=== PATIENT | male | born 1970 | race Caucasian/White ===

== ENCOUNTER 2016-07-13 05:41 | Inpatient (IN) | payer MEDICAID, OTHER ==
[~2016-07-13] VITALS: Ht 165.1 cm; Wt 85.2 kg
[~2016-07-13 05:41] MED LIST: TRAM50TA4 PO; WARF5 PO
[2016-07-13 06:58] LABS: BASOPHILS % (AUTO) 0.3 % (0.0-2.0); EOSINOPHILS % (AUTO) 5.2 % (1.0-6.0); HEMOGLOBIN 15.9 g/dL (13.5-17.5); LYMPHOCYTES # (AUTO) 1.2 K/uL (1.0-4.8); LYMPHOCYTES % (AUTO) 20.3 % (22.0-44.0); MEAN CORPUSCULAR HEMOGLOBIN 30.1 pg (26.0-34.0); MEAN CORPUSCULAR VOLUME 91 fL (80-100); MONOCYTES # (AUTO) 0.4 K/uL (0.1-1.0); MONOCYTES % (AUTO) 7.9 % (2.0-9.0); NEUTROPHILS # (AUTO) 3.8 K/uL (1.8-7.7); NEUTROPHILS % (AUTO) 66.3 % (40.0-70.0); PLATELET COUNT (AUTO) 152 K/uL (150-450); RED BLOOD CELL COUNT(AUTO) 5.27 MIL/uL (4.50-5.90); RED CELL DISTRIBUTION WIDTH 14.8 % (11.5-14.5); WHITE BLOOD COUNT (AUTO) 5.7 K/uL (4.5-11.0)
[2016-07-13 07:05] LABS: CALCIUM, TOTAL 9.2 mg/dL (8.8-10.5); CREATININE 2.2 mg/dL (0.60-1.30); POTASSIUM 4.4 mmol/L (3.5-5.1)
[2016-07-13 07:06] LABS: PROTHROMBIN TIME 10.3 SEC (9.4-11.6)
[2016-07-13 07:11] LABS: ALBUMIN 3.9 g/dL (3.4-5.0); BILIRUBIN,TOTAL 0.7 mg/dL (0.1-1.0)
[2016-07-13] MEDS ORDERED: ENOXAPARIN SODIUM 100 MG/ML PF SYRINGE SQ SCH (09:30)
[2016-07-13] MEDS ORDERED: WARFARIN SODIUM 5 MG TABLET PO ONE (09:30)
[2016-07-13] MEDS ORDERED: ACETAMINOPHEN 325 MG TABLET PO PRN (10:00)
[2016-07-13] MEDS ORDERED: ONDANSETRON HCL 4 MG/2 ML VIAL IVP PRN ×2 (10:00→11:45)
[2016-07-13] MEDS ORDERED: 0.9% SODIUM CHLORIDE 10 ML SYRINGE IVP PRN (10:00)
[2016-07-13] MEDS ORDERED: HYDROCODONE/ACETAMINOPHEN 5-325 MG TABLET PO ONE (10:00)
[2016-07-13 11:15] VITALS: BP 133/71
[2016-07-13] MEDS ORDERED: MAGNESIUM HYDROXIDE SUSPENSION 30 ML UDCUP PO PRN (11:45)
[2016-07-13] MEDS ORDERED: ZOLPIDEM TARTRATE 5 MG TABLET PO PRN (11:45)
[2016-07-13] MEDS ORDERED: HYDROCODONE/ACETAMINOPHEN 5-325 MG TABLET PO PRN (11:45)
[2016-07-13] MEDS ORDERED: BISACODYL 10 MG RECTAL RECTAL SUPPOSITORY PR PRN (11:45)
[2016-07-13] MEDS: OxyCODONE HCL/ACETAMINOPHEN 5-325 MG TABLET PO PRN (15:31)
[2016-07-13 16:44] VITALS: BP 128/72
[2016-07-13] MEDS ORDERED: SODIUM CHLORIDE 0.9% 1,000 ML IV ONE (18:17)
[2016-07-13] MEDS: SODIUM CHLORIDE 0.9% 1,000 ML IV SCH (18:37)
[2016-07-13 18:41] LABS: GLUCOSE,POINT OF CARE 102 MG/DL (70-110)
[2016-07-13 19:44] LABS: THYROID STIMULATING HORMONE 3.53 uIU/mL (0.36-3.74)
[2016-07-13 20:24] VITALS: BP 115/69
[2016-07-13] MEDS: ENOXAPARIN SODIUM 100 MG/ML PF SYRINGE SQ SCH (20:30)
[2016-07-14] VITALS (7 sets, daily range): BP systolic 115–137; BP diastolic 58–89
[2016-07-14] MEDS: SODIUM CHLORIDE 0.9% 1,000 ML IV SCH ×3 (00:27→23:19)
[2016-07-14 06:40] LABS: INR 1.3 (0.9-1.1); PROTHROMBIN TIME 14.1 SEC (9.4-11.6)
[2016-07-14 06:42] LABS: BASOPHILS % (AUTO) 0.3 % (0.0-2.0); HEMATOCRIT 43.7 % (41-53); HEMOGLOBIN 14.3 g/dL (13.5-17.5); LYMPHOCYTES # (AUTO) 1.4 K/uL (1.0-4.8); LYMPHOCYTES % (AUTO) 31.7 % (22.0-44.0); MEAN CORPUSCULAR HGB CONC 32.8 G/dL (31.0-37.0); MEAN CORPUSCULAR VOLUME 91 fL (80-100); MONOCYTES # (AUTO) 0.4 K/uL (0.1-1.0); NEUTROPHILS # (AUTO) 2.4 K/uL (1.8-7.7); PLATELET COUNT (AUTO) 140 K/uL (150-450); RED BLOOD CELL COUNT(AUTO) 4.78 MIL/uL (4.50-5.90); RED CELL DISTRIBUTION WIDTH 14.8 % (11.5-14.5); WHITE BLOOD COUNT (AUTO) 4.4 K/uL (4.5-11.0)
[2016-07-14 07:04] LABS: BILIRUBIN,TOTAL 0.4 mg/dL (0.1-1.0); CALCIUM, TOTAL 8.3 mg/dL (8.8-10.5); CREATININE 2.07 mg/dL (0.60-1.30); POTASSIUM 3.9 mmol/L (3.5-5.1); TOTAL PROTEIN, SERUM 6.3 g/dL (6.4-8.2)
[2016-07-14] MEDS: PANTOPRAZOLE SODIUM 40 MG DR TABLET PO SCH (07:58)
[2016-07-14] MEDS: ENOXAPARIN SODIUM 100 MG/ML PF SYRINGE SQ SCH ×2 (07:58→20:54)
[2016-07-14] MEDS ORDERED: WARFARIN SODIUM 5 MG TABLET PO ONE (17:00)
[2016-07-15 04:00] VITALS: BP 130/67
[2016-07-15 07:56] VITALS: BP 128/79
[2016-07-15] MEDS: PANTOPRAZOLE SODIUM 40 MG DR TABLET PO SCH (08:09)
[2016-07-15] MEDS: ENOXAPARIN SODIUM 100 MG/ML PF SYRINGE SQ SCH ×2 (08:09→20:00)
[2016-07-15] MEDS: SODIUM CHLORIDE 0.9% 1,000 ML IV SCH ×2 (10:45→20:18)
[2016-07-15 11:17] VITALS: BP 129/70
[2016-07-15 15:55] VITALS: BP 128/69
[2016-07-15] MEDS: WARFARIN SODIUM 5 MG TABLET PO SCH (18:09)
[2016-07-15 19:39] VITALS: BP 134/79
[2016-07-15] MEDS: OxyCODONE HCL/ACETAMINOPHEN 5-325 MG TABLET PO PRN (20:02)
[2016-07-15 23:50] VITALS: BP 125/66
[2016-07-16 04:41] VITALS: BP 114/61
[2016-07-16] MEDS: SODIUM CHLORIDE 0.9% 1,000 ML IV SCH ×2 (07:01→16:45)
[2016-07-16 08:10] VITALS: BP 123/68
[2016-07-16] MEDS: PANTOPRAZOLE SODIUM 40 MG DR TABLET PO SCH (08:17)
[2016-07-16] MEDS: ENOXAPARIN SODIUM 100 MG/ML PF SYRINGE SQ SCH (08:17)
[2016-07-16 11:44] VITALS: BP 117/55
[2016-07-16 15:17] LABS: INR 3.2 (0.9-1.1); PROTHROMBIN TIME 34.1 SEC (9.4-11.6)
[2016-07-16 15:38] VITALS: BP 135/68
[2016-07-16] MEDS: WARFARIN SODIUM 5 MG TABLET PO SCH (17:00)
[2016-07-16] MEDS ORDERED: WARF1 PO (18:42)
== END 2016-07-16 19:00 | disposition home or self-care (01) | DRG 300 ==
LOC: EMS 05:42 → 6N 09:40
PROVIDERS: ADMIT Hospitalist; ATTEND Hospitalist
DX: I82.432 Acute embolism and thrombosis of left popliteal vein (principal); N17.9 Acute kidney failure, unspecified; I82.412 Acute embolism and thrombosis of left femoral vein; N18.9 Chronic kidney disease, unspecified; R80.9 Proteinuria, unspecified; I12.9 Hypertensive chronic kidney disease with stage 1 through stage 4 chronic kidney disease, or unspecified chronic kidney disease; Z86.718 Personal history of other venous thrombosis and embolism
CPT/HCPCS: 82962; 84439; 84443; 93971; 96372; 99285; J1650; J7030

== ENCOUNTER 2016-09-07 08:52 | Emergency (ER) | payer MEDICAID, OTHER ==
[~2016-09-07] VITALS: Ht 165.1 cm; Wt 86.4 kg
[~2016-09-07 08:52] MED LIST changes: -TRAM50TA4 PO; +WARF1 PO; -WARF5 PO
[2016-09-07 10:05] LABS: BASOPHILS % (AUTO) 0.3 % (0.0-2.0); EOSINOPHILS % (AUTO) 1.6 % (1.0-6.0); HEMATOCRIT 48.1 % (41-53); HEMOGLOBIN 15.4 g/dL (13.5-17.5); LYMPHOCYTES % (AUTO) 16.6 % (22.0-44.0); MEAN CORPUSCULAR HEMOGLOBIN 29.5 pg (26.0-34.0); MEAN CORPUSCULAR HGB CONC 31.9 G/dL (31.0-37.0); MEAN CORPUSCULAR VOLUME 92 fL (80-100); MONOCYTES # (AUTO) 0.5 K/uL (0.1-1.0); MONOCYTES % (AUTO) 7.5 % (2.0-9.0); NEUTROPHILS # (AUTO) 4.5 K/uL (1.8-7.7); PLATELET COUNT (AUTO) 167 K/uL (150-450); RED BLOOD CELL COUNT(AUTO) 5.21 MIL/uL (4.50-5.90); RED CELL DISTRIBUTION WIDTH 14.1 % (11.5-14.5)
[2016-09-07 10:14] LABS: CALCIUM, TOTAL 9.3 mg/dL (8.8-10.5); CREATININE 1.95 mg/dL (0.60-1.30); POTASSIUM 3.4 mmol/L (3.5-5.1)
[2016-09-07 10:17] LABS: PROTHROMBIN TIME 10.5 SEC (9.4-11.6)
[2016-09-07 10:20] LABS: ALBUMIN 3.8 g/dL (3.4-5.0); BILIRUBIN,TOTAL 0.5 mg/dL (0.1-1.0); TOTAL PROTEIN, SERUM 7.3 g/dL (6.4-8.2)
[2016-09-07] MEDS ORDERED: IOVERSOL 350 MG/ML 150 ML VIAL ONE (10:55)
[2016-09-07] MEDS ORDERED: SODIUM CHLORIDE 0.9% 100 ML ONE (10:56)
[2016-09-07 12:33] VITALS: BP 145/89
== END 2016-09-07 12:50 | disposition home or self-care (01) ==
LOC: EMS 08:53
DX: J40 Bronchitis, not specified as acute or chronic (principal); N28.9 Disorder of kidney and ureter, unspecified; Z86.718 Personal history of other venous thrombosis and embolism; Z79.01 Long term (current) use of anticoagulants
CPT/HCPCS: 36415; 71275; 80053; 85025; 85610; 85730; 99285; J7050; Q9967

== ENCOUNTER 2018-11-12 16:19 | Emergency (ER) | payer SELFPAY ==
[~2018-11-12] VITALS: Ht 172.7 cm; Wt 86.4 kg
[2018-11-12 17:16] LABS: INR 2.4 (0.9-1.1); PROTHROMBIN TIME 24.6 SEC (9.4-11.6)
[2018-11-12 17:40] VITALS: BP 136/97
== END 2018-11-12 17:42 | disposition home or self-care (01) ==
LOC: EMS 16:20
DX: M79.605 Pain in left leg (principal); M79.652 Pain in left thigh; M79.89 Other specified soft tissue disorders; I10 Essential (primary) hypertension; Z86.718 Personal history of other venous thrombosis and embolism; Z79.899 Other long term (current) drug therapy; Z79.01 Long term (current) use of anticoagulants

== ENCOUNTER 2019-09-07 06:08 | Emergency (ER) | payer OTHER ==
[~2019-09-07] VITALS: Ht 162.6 cm; Wt 90.9 kg
[~2019-09-07 06:08] MED LIST changes: -WARF1 PO; +WARF1TAB9 PO
[2019-09-07 07:33] VITALS: BP 131/84
== END 2019-09-07 07:35 | disposition home or self-care (01) ==
LOC: EMS 06:08
DX: S93.402A Sprain of unspecified ligament of left ankle, initial encounter (principal); W01.0XXA Fall on same level from slipping, tripping and stumbling without subsequent striking against object, initial encounter; Y93.89 Activity, other specified; Y92.89 Other specified places as the place of occurrence of the external cause; Y99.8 Other external cause status

== ENCOUNTER 2020-07-24 10:13 | Emergency (ER) | payer OTHER ==
[~2020-07-24] VITALS: Ht 170.2 cm; Wt 110.0 kg
[2020-07-24] MEDS ORDERED: SODIUM CHLORIDE 0.9% 1,000 ML IV ONE (14:00)
[2020-07-24] MEDS ORDERED: MORPHINE SULFATE 4 MG/ML SYRINGE IVP ONE (14:00)
[2020-07-24] MEDS ORDERED: ONDANSETRON HCL 4 MG/2 ML VIAL IVP ONE (14:00)
[2020-07-24 14:47] LABS: BASOPHILS % (AUTO) 0.3 % (0.0-2.0); EOSINOPHILS % (AUTO) 5.2 % (1.0-6.0); HEMATOCRIT 42.8 % (41-53); HEMOGLOBIN 14.6 g/dL (13.5-17.5); LYMPHOCYTES # (AUTO) 1.1 K/uL (1.0-4.8); LYMPHOCYTES % (AUTO) 20.1 % (22.0-44.0); MEAN CORPUSCULAR HEMOGLOBIN 31.5 pg (26.0-34.0); MEAN CORPUSCULAR VOLUME 93 fL (80-100); MONOCYTES # (AUTO) 0.5 K/uL (0.1-1.0); MONOCYTES % (AUTO) 9.6 % (2.0-9.0); NEUTROPHILS # (AUTO) 3.7 K/uL (1.8-7.7); NEUTROPHILS % (AUTO) 64.8 % (40.0-70.0); PLATELET COUNT (AUTO) 150 K/uL (150-450); RED BLOOD CELL COUNT(AUTO) 4.63 MIL/uL (4.50-5.90); RED CELL DISTRIBUTION WIDTH 13.3 % (11.5-14.5)
[2020-07-24 15:02] LABS: CALCIUM, TOTAL 9.8 mg/dL (8.8-10.5); CREATININE 1.99 mg/dL (0.60-1.30); POTASSIUM 3.8 mmol/L (3.5-5.1); PROTHROMBIN TIME 10.2 SEC (9.4-11.6)
[2020-07-24 15:07] LABS: ALBUMIN 4.3 g/dL (3.4-5.0); BILIRUBIN,TOTAL 0.4 mg/dL (0.1-1.0); TOTAL PROTEIN, SERUM 8.3 g/dL (6.4-8.2)
[2020-07-24 15:14] LABS: APPEARANCE,URINE CLEAR (CLEAR); BILIRUBIN,URINE NEGATIVE (NEGATIVE); GLUCOSE, URINE (UA) NEGATIVE (NEGATIVE); KETONES,URINE NEGATIVE (NEGATIVE); LEUKOCYTE ESTERASE ,URINE NEGATIVE (NEGATIVE); NITRATE,URINE NEGATIVE (NEGATIVE); OCCULT BLOOD,URINE NEGATIVE (NEGATIVE); PH,URINE 6.5 (5.0-8.0); PROTEIN,URINE NEGATIVE (NEGATIVE); UROBILINOGEN,URINE 0.2 mg/dL (<=1.0)
[2020-07-24 17:30] VITALS: BP 136/74
== END 2020-07-24 18:26 | disposition home or self-care (01) ==
LOC: EMS 11:38
DX: R10.31 Right lower quadrant pain (principal); I10 Essential (primary) hypertension; Z79.01 Long term (current) use of anticoagulants
CPT/HCPCS: 36415; 74176; 80053; 81003; 83690; 84484; 85025; 85610; 85730; 93005; 93971; 96361; 96374; 96375; 99285; J2270; J2405; J7030